=== PATIENT | female | born 1935 | race Caucasian/White ===

== ENCOUNTER 2017-04-04 01:48 | Inpatient (IN) | payer MEDICARE ==
[~2017-04-04] VITALS: Ht 162.6 cm; Wt 90.5 kg
[2017-04-04] VITALS (11 sets, daily range): BP systolic 110–210; BP diastolic 47–98
[~2017-04-04 01:48] MED LIST: ALLOPURINOL100 MG PO; CIPRO500 MG PO; CORGARD20 MG PO; COUMADIN0.5 M1 PO; COUMADIN5 M1 PO; FLAGYL500 MG PO; HYDROCODONE BIT1 T11 PO; NORCO 5-325 TA1 EACH PO; OXYBUTYNIN ER5 MG PO; SULFAMETH/TRIME1 TA1 PO; ULTRAM ER100 MG PO; VITAMIN D400 I1 PO; VITAMIN D5000 I3 PO
[2017-04-04] MEDS ORDERED: LOSARTAN POTASS50 M1 PO (01:55)
[2017-04-04 02:24] LABS: BASO % 0.1 % (0.0-1.0); EOS # 0.3 10*3/uL (0.0-0.4); EOS % 2.5 % (1.0-4.0); HEMATOCRIT 44.7 % (37.0-47.0); HEMOGLOBIN 14.8 g/dl (12.0-16.0); IG # 0.1 10*3/uL (0.0-0.1); LYMPH # 0.8 10*3/uL (1.3-4.4); LYMPH % 7.3 % (27.0-41.0); MEAN CELL VOLUME 86.1 fl (81.0-99.0); MEAN CORPUSCULAR HGB 28.5 pg (27.0-31.0); MEAN CORPUSCULAR HGB CONC 33.1 g/dl (33.0-37.0); MEAN PLATELET VOLUME 10.2 fl (9.6-12.3); MONO # 0.5 10*3/uL (0.1-1.0); MONO % 4.5 % (3.0-9.0); NEUT # 9.1 10*3/uL (2.3-7.9); NEUT % 84.8 % (47.0-73.0); PLATELET COUNT AUTOMATED 122 10*3/uL (130-400); RED BLOOD COUNT 5.19 10*6/uL (4.10-5.10); RED CELL DISTRI WIDTH 13.9 % (0-14.5); WHITE BLOOD COUNT 10.8 10*3/uL (4.8-10.8)
[2017-04-04 02:33] LABS: INTERNATIONAL NORM RATIO 3.9 (2.0-3.5); PROTHROMBIN TIME 45.5 SECONDS (9.0-12.4)
[2017-04-04 02:41] LABS: ALBUMIN 3.4 gm/dl (3.1-4.5); BILIRUBIN, TOTAL 0.9 mg/dl (0.2-1.0); POTASSIUM 3.9 mmol/L (3.5-5.1); TOTAL PROTEIN 7.3 gm/dL (6.4-8.2)
[2017-04-04 04:21] LABS: LA>2 REFLEX 2 HR DRAW NOW
[2017-04-04 04:50] LABS: LA>2 RFLX FOLLOW UP AT 2 HRS 2.9 mmol/L (0.4-2.0)
[2017-04-04 06:38] LABS: LA>2 REFLEX 4 HR DRAW NOW
[2017-04-04 06:40] LABS: FREE T4 1.2 ng/dl (0.76-1.46); HEMOGLOBIN A1c 5.7 % (4.8-5.6); MAGNESIUM 1.6 mg/dL (1.5-2.1); PHOSPHOROUS 2.3 mg/dL (2.5-4.9)
[2017-04-04 06:45] LABS: THYROID STIM HORMONE (HS) 1.66 uIU/ml (0.358-4.75)
[2017-04-04 07:16] LABS: VITAMIN D, 25-HYDROXY 40.7 ng/mL (30-100)
[2017-04-04 07:17] LABS: FOLIC ACID 10.79 ng/mL (>5.38)
[2017-04-04 11:20] LABS: BILIRUBIN NEGATIVE (NEGATIVE); BLOOD 1+ (NEGATIVE); CLARITY CLOUDY (CLEAR); COLOR YELLOW (YELLOW); GLUCOSE NEGATIVE (NEGATIVE); KETONE NEGATIVE (NEGATIVE); LEUKO ESTERASE 3+ (NEGATIVE); NITRITE POSITIVE (NEGATIVE); PH 6.5 (5.0-9.0); PROTEIN 1+ (NEGATIVE); UROBILINOGEN 0.2 E.U./dl (0.2-1.0)
[2017-04-04 11:20] LABS: LA>2 REFLEX 2 HR DRAW NOW
[2017-04-04 11:34] LABS: RBC TNTC rbc/hpf (0-2); URINE REFLEX COMMENT YES (NO); WBC TNTC wbc/hpf (0-5)
[2017-04-05] VITALS: BP 155/56
[2017-04-05 06:10] LABS: POTASSIUM 3.7 mmol/L (3.5-5.1)
[2017-04-05 06:18] LABS: INTERNATIONAL NORM RATIO 2.6 (2.0-3.5); PROTHROMBIN TIME 29.7 SECONDS (9.0-12.4)
[2017-04-05 08:00] VITALS: BP 152/84
[2017-04-05 12:00] VITALS: BP 137/58
[2017-04-05 16:00] VITALS: BP 149/50
[2017-04-05 20:00] VITALS: BP 136/45
[2017-04-06] VITALS: BP 152/81
[2017-04-06 06:50] LABS: INTERNATIONAL NORM RATIO 1.8 (2.0-3.5); PROTHROMBIN TIME 19.9 SECONDS (9.0-12.4)
[2017-04-06 08:00] VITALS: BP 152/70
[2017-04-06] MEDS ORDERED: KEFLEX500 M1 PO (10:19)
[2017-04-06] MEDS ORDERED: BACTRIM DS 8001 TA1 PO (10:19)
== END 2017-04-06 13:02 | disposition home or self-care (01) | DRG 872 ==
LOC: ED 01:48 → EDHOLD 02:55 → 4E 02:55 → ICCU 03:04 → 4E 03:19
PROVIDERS: Emergency Medicine; Internal Medicine; Student in an Organized Health Care Education/Training Program
DX: A41.9 Sepsis, unspecified organism (principal); N17.9 Acute kidney failure, unspecified; L03.116 Cellulitis of left lower limb; D69.6 Thrombocytopenia, unspecified; N18.3 Chronic kidney disease, stage 3 (moderate); I16.1 Hypertensive emergency; N30.00 Acute cystitis without hematuria; R65.20 Severe sepsis without septic shock; R73.9 Hyperglycemia, unspecified; D72.810 Lymphocytopenia; M1A.9XX0 Chronic gout, unspecified, without tophus (tophi); E55.9 Vitamin D deficiency, unspecified; E78.5 Hyperlipidemia, unspecified; I16.0 Hypertensive urgency; B96.20 Unspecified Escherichia coli [E. coli] as the cause of diseases classified elsewhere; I12.9 Hypertensive chronic kidney disease with stage 1 through stage 4 chronic kidney disease, or unspecified chronic kidney disease; G89.29 Other chronic pain; Z96.643 Presence of artificial hip joint, bilateral; Z82.49 Family history of ischemic heart disease and other diseases of the circulatory system; Z79.01 Long term (current) use of anticoagulants; Z86.711 Personal history of pulmonary embolism; Z86.718 Personal history of other venous thrombosis and embolism; Z79.899 Other long term (current) drug therapy

== ENCOUNTER → 2017-04-10 | Outpatient (CLI) | payer MEDICARE ==
[~2017-04-10] MED LIST changes: +BACTRIM DS 8001 TA1 PO; +KEFLEX500 M1 PO; +LOSARTAN POTASS50 M1 PO
--- NOTE | ~2017-04-10 | WRIGHTHP ---
[place], [place] PATIENT HISTORY AND PHYSICAL EXAM NAME: ROBLES TOVAR [facility] #: [id number] UNIT #: [id number] ROOM: DOCTOR: SEGUNDO ZuritaIDANIA BIRTHDATE: [birth year] DOS: 04/10/2017 NEW PATIENT EVALUATION CHIEF COMPLAINT: Skin tear of the left leg as well as cellulitis of the left leg. HISTORY OF PRESENT ILLNESS: This is an 81-year-old female who is referred to us by Dr Klein her PCP. She had recently been admitted approximately 6 days ago for left leg cellulitis. She apparently had accidentally scraped her left leg on the car door when she was getting out of it a few days prior to her admission and subsequently developed pain and erythema just around the wound that just quickly spread to encompass the entire leg to the point where it was quite red and quite swollen and painful and she was admitted for that. She was treated with antibiotics. She had Doppler ultrasound which was negative for DVT. She also had some issues with her blood pressure causing dizziness and her blood pressure was also managed during that admission as well. She was discharged on 2 oral antibiotics and was asked to follow up in the [facility]. She states that since then she still has some swelling of her leg and some discomfort of her leg that is still red, but according to the , the redness is much improved from when she first started the antibiotics. She had been having trouble trying to keep the dressing on it because it does not stick very well, so today, we are using Telfa and a Coban to keep the dressing in place. PAST MEDICAL HISTORY: Significant for a history of acute appendicitis; chronic pain; chronic kidney disease stage 3; history of gout; history of DVT, which has resolved; hyperlipidemia; hypertension; pulmonary embolus; UTI; vitamin D deficiency. PAST SURGICAL HISTORY: Bilateral hip replacements. She also has a history of inferior vena cava filter placement. SOCIAL HISTORY: She does not smoke or drink. She lives with her . She uses a walker to ambulate with. FAMILY HISTORY: Significant for congestive heart failure and kidney failure in her father. Mother is , cause was old age. ALLERGIES: No known drug allergies. CURRENT MEDICATIONS: As follows: Tylenol 650 mg p.o. t.i.d. p.r.n., Xanax 0.25 t.i.d., warfarin 5 mg daily, Orin 80 daily, losartan 50 mg daily, nadolol 20 mg half a tablet b.i.d., allopurinol 100 mg daily, diclofenac gel every 6h as needed, oxybutynin 5 mg q.24h, vitamin D3 1000 units daily, Bactrim 1 tablet p.o. b.i.d. and cephalexin 500 p.o. b.i.d. REVIEW OF SYSTEMS: She denies any chest pains or shortness of breath. She did have some nausea and dizziness when she was first admitted, but that has resolved. No further problems with that. No diarrhea. She is tolerating the [place], [place] PATIENT HISTORY AND PHYSICAL EXAM NAME: ROBLES TOVAR UNIT #: [id number] ROOM: DOCTOR: IDANIA RAYMOND M.D. BIRTHDATE: [birth year] antibiotics. No current fevers or chills. She does continue to have some swelling and redness of the leg, but it has improved from when she first started the antibiotics. She is able to ambulate well without symptoms of claudication. PHYSICAL EXAMINATION: VITAL SIGNS: As follows: She is afebrile, pulse of 76, respirations 20, blood pressure is 122/82. GENERAL: This is an elderly female who appears about her stated age, in no acute distress, pleasant and cooperative to examination. HEENT: Extraocular movements are intact. Oropharynx is clear. NECK: Supple. There is no JVD. LUNGS: Clear to auscultation. CARDIOVASCULAR: S1, S2, regular rate and rhythm. ABDOMEN: Obese, soft and nontender. EXTREMITIES: She has edema bilaterally, the left being more noticeable than the right. She has got positive peripheral pulses. Her feet are warm. She has multiple venous stasis changes and varicosities noted. The left leg is erythematous and I did not appreciate it being warmer than the right, at this point, but it is red up to just below the knee. Capillary refill is normal. Apparently, ABIs were unable to be obtained as the patient could not tolerate blood pressure being checked on her upper arms according to that what is listed in the chart. She had normal sensation in her feet. She has 1 small skin tear on the posterior calf of the left leg. It is measuring approximately 1.2 x 1.5 x 0.1 and it is superficial, triangular shaped in nature. There is no purulence. There is some devitalized tissue. Some of the epidermis is just coming off quite easily. This area was selectively debrided. I would say 30% of the wound was selectively debrided with forceps and scissors. There was minimal bleeding that was controlled with pressure. The patient tolerated the debridement well. Post-debridement measurements are as follows, 1.5 x 1 x 0.1. LABORATORY DATA: Her last white count was 10.8, hemoglobin was normal at 14, platelets were slightly low at 122. She had a BUN of 25, creatinine of 1.2, sodium of 141, potassium of 3.7. Glucose was 104. She had a Doppler ultrasound twice; one done in February, which was negative for DVT for the left lower extremity and was negative for DVT as well. ASSESSMENT AND PLAN: Small abrasion of the left calf. At this point, I would like to use TheraHoney and foam for her as well as Tubigrip for edema control. I have asked her to try to keep her leg elevated while she is resting. She should have compression stockings ordered for her, so we will get measurements for her legs and order them for her, we will discuss this with her at her next wound care visit. She still has some evidence of cellulitis. She is completing an antibiotic course. In addition, I did notice that she had multiple areas on her legs that had the appearance of actinic keratoses from sun damage and I did recommend that she does see a mastic sprayer for this at some point. In the meantime, she is going to follow up with us in one week. GRADY's not obtained today while she is here, but we may want to consider doing arterial studies if she would like to try compression bandaging. [place], [place] PATIENT HISTORY AND PHYSICAL EXAM [facility]: [facility] [id number] UNIT #: [id number] ROOM: DOCTOR: IDANIA RAYMOND M.D. BIRTHDATE: [birth year] IDANIA RAYMOND MD CM:HISPHYS:PATIENT HISTORY AND PHYSICAL EXAMINATION [id number] IDANIA RAYMOND M.D. 04/12/17 0922 interface
== END ==
LOC: WOUNDCARE 00:23
DX: S80.812A Abrasion, left lower leg, initial encounter (principal); L03.116 Cellulitis of left lower limb; I87.2 Venous insufficiency (chronic) (peripheral); I12.9 Hypertensive chronic kidney disease with stage 1 through stage 4 chronic kidney disease, or unspecified chronic kidney disease; N18.3 Chronic kidney disease, stage 3 (moderate); E78.5 Hyperlipidemia, unspecified; Z86.711 Personal history of pulmonary embolism; Z86.718 Personal history of other venous thrombosis and embolism; X58.XXXA Exposure to other specified factors, initial encounter; Y93.89 Activity, other specified; Y92.89 Other specified places as the place of occurrence of the external cause; Y99.8 Other external cause status

== ENCOUNTER → 2017-04-17 | Outpatient (CLI) | payer MEDICARE ==
--- NOTE | ~2017-04-17 | PR ---
[place], [place] PROGRESS NOTE NAME: ROBLES TOVAR [facility] #: [id number] UNIT #: [id number] ROOM: DOCTOR: SEGUNDO ZuritaIDANIA BIRTHDATE: [birth year] DOS: 04/17/2017 CHIEF COMPLAINT: Follow up of skin tear of the left leg as well as cellulitis of the left leg. HISTORY OF PRESENT ILLNESS: An 81-year-old female with a history of severe cellulitis of the left leg and a skin tear. She had been admitted to the hospital for this and was sent here for followup of her wound care. She was seen last week, we had prescribed TheraHoney and a foam as well as Tubigrip for edema control. She comes in today for a followup visit. She said she finished her antibiotics. She says her leg is much better. The redness is improved quite a bit. She does not describe any pain with the wound and her erythema and her redness and swelling have improved a lot. Her wound is also getting much smaller and is not draining any significant amounts of drainage. She does complain, however, of ankle pain on her left ankle. She says it is swollen and she is wondering if this is gout. She does not recall injuring her ankle at all. SOCIAL HISTORY: She does not smoke or drink. She ambulates with a walker. PHYSICAL EXAMINATION: VITAL SIGNS: Stable. Her temperature is 97.7, pulse 64, respirations 18, blood pressure is 104/52. WOUND EXAMINATION: The wound is looking much better, 0.3 in length x 0.8 in width x 0.1. It is definitely improved. There is really no visible necrotic tissue. There is a very small drying scab. The erythema and edema of the leg is much improved as well. She is complaining of some ankle pain and the ankle does appear slightly edematous. She is able to move her ankle and there is no wound associated in the ankle area. ASSESSMENT AND PLAN: Abrasion that is healing. Her cellulitis is definitely improved. She does have some venous insufficiency. I did ask if she wanted to go ahead and order compression stockings. She says she really is fine with the Tubigrip and does not really to wear anything tighter. I did recommend that she go and follow up with her PCP regarding her ankle pain as this is not really my field of expertise at this time. Followup in 1 week. [place], [place] PROGRESS NOTE NAME: ROBLES TOVAR UNIT #: [id number] ROOM: DOCTOR: IDANIA RAYMOND M.D. BIRTHDATE: [birth year] IDANIA RAYMOND MD CM:ARA [phone] IDANIA RAYMOND M.D. 04/17/17 1419 interface
== END ==
LOC: WOUNDCARE 10:50
DX: S80.812D Abrasion, left lower leg, subsequent encounter (principal); I87.2 Venous insufficiency (chronic) (peripheral); L03.116 Cellulitis of left lower limb; X58.XXXD Exposure to other specified factors, subsequent encounter

== ENCOUNTER → 2017-04-24 | Outpatient (CLI) | payer MEDICARE | LOC: WOUNDCARE 02:20 | DX: S81.812D Laceration without foreign body, left lower leg, subsequent encounter (principal); L03.116 Cellulitis of left lower limb; I87.2 Venous insufficiency (chronic) (peripheral); X58.XXXD Exposure to other specified factors, subsequent encounter ==

== ENCOUNTER → 2017-09-16 | Outpatient (CLI) | payer MEDICARE | END | disposition home or self-care (01) | LOC: US 15:30 | DX: R60.0 Localized edema (principal) ==

== ENCOUNTER 2017-10-04 12:41 | Emergency (ER) | payer MEDICARE ==
[~2017-10-04] VITALS: Ht 162.5 cm; Wt 95.3 kg
[2017-10-04 13:58] LABS: BASO % 0.3 % (0.0-1.0); EOS # 0.2 10*3/uL (0.0-0.4); EOS % 2.2 % (1.0-4.0); HEMATOCRIT 34.8 % (37.0-47.0); HEMOGLOBIN 11.5 g/dl (12.0-16.0); LYMPH # 1.9 10*3/uL (1.3-4.4); LYMPH % 20.1 % (27.0-41.0); MEAN CELL VOLUME 87.9 fl (81.0-99.0); MEAN PLATELET VOLUME 10.4 fl (9.6-12.3); MONO # 0.7 10*3/uL (0.1-1.0); MONO % 7.7 % (3.0-9.0); NEUT # 6.3 10*3/uL (2.3-7.9); NEUT % 68.4 % (47.0-73.0); PLATELET COUNT AUTOMATED 202 10*3/uL (130-400); RED BLOOD COUNT 3.96 10*6/uL (4.10-5.10); RED CELL DISTRI WIDTH 13.9 % (0-14.5); WHITE BLOOD COUNT 9.2 10*3/uL (4.8-10.8)
[2017-10-04 14:07] LABS: ACT PARTIAL THROMBO TIME 27.6 SECONDS (20.8-31.5); INTERNATIONAL NORM RATIO 1.6 (2.0-3.5)
[2017-10-04 14:11] LABS: ALBUMIN 3.5 gm/dl (3.1-4.5); ALKALINE PHOSPHATASE 77 U/L (45-117); BUN 22 mg/dl (7-24); CHLORIDE 105 mmol/L (98-107); CREATININE 1.31 mg/dL (0.55-1.02); LIPASE 122 U/L (73-393); POTASSIUM 3.9 mmol/L (3.5-5.1); SGOT/AST 18 IU/L (3-35); SGPT/ALT 14 U/L (12-78); SODIUM 139 mmol/L (136-145); TOTAL PROTEIN 7.7 gm/dL (6.4-8.2)
[2017-10-04 14:15] LABS: TROPONIN I < 0.015 ng/ml (<0.045)
[2017-10-04 17:11] VITALS: BP 200/85
== END 2017-10-04 17:53 | disposition short-term general hospital (02) ==
LOC: ED 12:41
PROVIDERS: Emergency Medicine
DX: N93.9 Abnormal uterine and vaginal bleeding, unspecified (principal); I12.9 Hypertensive chronic kidney disease with stage 1 through stage 4 chronic kidney disease, or unspecified chronic kidney disease; N18.3 Chronic kidney disease, stage 3 (moderate); E78.5 Hyperlipidemia, unspecified; M10.9 Gout, unspecified; Z79.02 Long term (current) use of antithrombotics/antiplatelets; Z79.899 Other long term (current) drug therapy; Z86.718 Personal history of other venous thrombosis and embolism

== ENCOUNTER 2018-11-14 14:16 | Inpatient (IN) | payer MEDICARE ==
[~2018-11-14] VITALS: Ht 162.6 cm; Wt 95.4 kg
[2018-11-14 14:26] VITALS: BP 161/63
[2018-11-14] MEDS ORDERED: CORGARD20 MG PO (14:32)
[2018-11-14] MEDS ORDERED: VITAMIN D5000 UNIT PO (14:32)
[2018-11-14] MEDS ORDERED: ALLEGRA ALLERGY60 M2 PO (14:33)
[2018-11-14] MEDS ORDERED: CIPRO250 MG PO (14:33)
[2018-11-14] MEDS ORDERED: COLACE100 MG PO (14:33)
[2018-11-14] MEDS ORDERED: ASPIRIN325 M2 PO (14:33)
[2018-11-14 14:45] VITALS: BP 149/50
[2018-11-14 14:45] LABS: BASO % 0.3 % (0.0-1.0); EOS # 0.1 10*3/uL (0.0-0.4); EOS % 0.9 % (1.0-4.0); HEMATOCRIT 38.2 % (37.0-47.0); HEMOGLOBIN 11.8 g/dl (12.0-16.0); LYMPH % 9.2 % (27.0-41.0); MEAN CELL VOLUME 81.4 fl (81.0-99.0); MEAN CORPUSCULAR HGB 25.2 pg (27.0-31.0); MEAN CORPUSCULAR HGB CONC 30.9 g/dl (33.0-37.0); MEAN PLATELET VOLUME 9.8 fl (9.6-12.3); MONO # 0.9 10*3/uL (0.1-1.0); MONO % 8.3 % (3.0-9.0); NEUT # 8.4 10*3/uL (2.3-7.9); NEUT % 79.8 % (47.0-73.0); PLATELET COUNT AUTOMATED 152 10*3/uL (130-400); RED BLOOD COUNT 4.69 10*6/uL (4.10-5.10); RED CELL DISTRI WIDTH 14.8 % (0-14.5); WHITE BLOOD COUNT 10.6 10*3/uL (4.8-10.8)
[2018-11-14 14:55] LABS: BILIRUBIN NEGATIVE (NEGATIVE); BLOOD 2+ (NEGATIVE); CLARITY TURBID (CLEAR); COLOR YELLOW (YELLOW); GLUCOSE NEGATIVE (NEGATIVE); KETONE TRACE (NEGATIVE); LEUKO ESTERASE 2+ (NEGATIVE); NITRITE NEGATIVE (NEGATIVE); UROBILINOGEN 0.2 E.U./dl (0.2-1.0)
[2018-11-14 15:01] LABS: ALBUMIN 3.3 gm/dl (3.1-4.5); CREATININE 1.37 mg/dL (0.55-1.02); POTASSIUM 4.2 mmol/L (3.5-5.1)
[2018-11-14 15:09] LABS: BACTERIA 2+; WBC TNTC wbc/hpf (0-5)
[2018-11-14 15:45] VITALS: BP 148/56
--- NOTE | 2018-11-14 16:22 | NUR ---
PT HAS NO COMPLAINTS AT THIS TIME. LOVENOX HAS BEEN GIVEN AND ROCEPHIN IS GOING AT THIS TIME. PATIENT AND FAMILY MADE AWARE THAT SHE IS GOING TO BED 524 AND WHEN THE BED IS CLEAN WE WILL GO UPSTAIRS.
[2018-11-14 16:40] VITALS: BP 175/86
[2018-11-14 16:54] VITALS: BP 138/70
--- NOTE | 2018-11-14 16:54 | NUR ---
A 83, admitted to 5E, under the services of FARHAT Carpenter DO with a diagnosis of UTI, RLE DVT, UNABLE TO AMBULATE. Chief complaint is RLE PAIN, UNABLE TO AMBULATE. Patient arrived via bed from ER. Monitor applied. Initial assessment completed. Vital signs taken and recorded. FARHAT CARPENTER DO notified of admission to the unit. Orders received. See assessment for past medical history, medications and allergies. Patient and/or family oriented to unit. Clothing/patient valuable form completed. ARMANI SAMUEL
--- NOTE | 2018-11-14 17:25 | NUR ---
ADDRESSED CONCERNS WITH THAT PATIENT HAS HX OF PE'S AND NO CXR/CTA HAS BEEN ORDERED, PAITENT NEEDS TO BE NPO PRIOR TO CTA. INFORMED THAT PATIENT IS REQUESTING TO BE DNR-CC AND FULL CODE IS ORDERED BY HEMANT. ALSO, MEDICATIONS ARE VERIFIED FROM HOME.
--- NOTE | 2018-11-14 17:30 | NUR ---
STATED OK TO CHANGE CODE STATUS TO PATIENT'S WISHES AND STATED THAT NO CXR/CTA WILL BE ORDERED, LOVENOX IS ORDERED.
--- NOTE | 2018-11-14 18:37 | NUR ---
PATIENT MEDICATED WITH TYLENOL FOR RLE PAIN 5/10. WILL MONITOR.
[2018-11-14 20:00] VITALS: BP 112/54
--- NOTE | 2018-11-14 20:21 | NUR ---
ATTEMPTED TO DO ORTHOSTATIC BLOOD PRESSURES. PATIENT WAS ABLE TO TOLERATE LAYING FLAT AND SITTING, BUT COULDN'T TOLERATED STANDING AT THIS TIME.
[2018-11-15] VITALS: BP 109/49
[2018-11-15 06:06] LABS: BASO % 0.3 % (0.0-1.0); EOS # 0.3 10*3/uL (0.0-0.4); EOS % 3.7 % (1.0-4.0); LYMPH # 1.3 10*3/uL (1.3-4.4); LYMPH % 17.3 % (27.0-41.0); MEAN CORPUSCULAR HGB 25.8 pg (27.0-31.0); MEAN CORPUSCULAR HGB CONC 31.4 g/dl (33.0-37.0); MONO # 0.7 10*3/uL (0.1-1.0); MONO % 9.2 % (3.0-9.0); NEUT # 5.1 10*3/uL (2.3-7.9); NEUT % 68.2 % (47.0-73.0); PLATELET COUNT AUTOMATED 159 10*3/uL (130-400); RED BLOOD COUNT 4.27 10*6/uL (4.10-5.10); RED CELL DISTRI WIDTH 15.2 % (0-14.5); WHITE BLOOD COUNT 7.5 10*3/uL (4.8-10.8)
[2018-11-15 06:34] LABS: CREATININE 1.2 mg/dL (0.55-1.02); POTASSIUM 3.8 mmol/L (3.5-5.1)
[2018-11-15 06:40] LABS: THYROID STIM HORMONE (HS) 1.78 uIU/ml (0.358-4.75)
[2018-11-15 06:43] LABS: ACT PARTIAL THROMBO TIME 27.6 SECONDS (20.8-31.5)
[2018-11-15 08:00] VITALS: BP 166/65
[2018-11-15 08:06] LABS: VITAMIN D, 25-HYDROXY 45.7 ng/mL (30-100)
--- NOTE | 2018-11-15 09:30 | NUR ---
MEDICATED WITH TYLENOL FOR COMPLAINTS OF HEADACHE. WILL MONITOR FOR EFFECTIVENESS.
--- NOTE | 2018-11-15 10:21 | NUR ---
DR MARCOS IN TO SEE PT AT THIS TIME.
--- NOTE | 2018-11-15 11:00 | NUR ---
PT STATES EARLIER TYLENOL EFFECTIVE FOR HEADACHE. RESTING MORE COMFORTABLY.
--- NOTE | 2018-11-15 11:30 | NUR ---
GREENS OR GROUNDS SUPERINTENDENT REMOVED PER ORDER.
[2018-11-15 12:00] VITALS: BP 140/59
[2018-11-15 16:00] VITALS: BP 168/70
--- NOTE | 2018-11-15 16:44 | NUR ---
MEDICATED WITH TYLENOL PER PRN ORDER FOR TEMP OF 100.2, ALSO COMPLAINTS OF LEG PAIN.
[2018-11-15 20:00] VITALS: BP 124/74
[2018-11-16] VITALS: BP 140/57
[2018-11-16 04:00] VITALS: BP 154/68
[2018-11-16 06:39] LABS: BASO % 0.3 % (0.0-1.0); EOS # 0.1 10*3/uL (0.0-0.4); HEMATOCRIT 34.4 % (37.0-47.0); HEMOGLOBIN 10.7 g/dl (12.0-16.0); LYMPH # 1.2 10*3/uL (1.3-4.4); LYMPH % 18.9 % (27.0-41.0); MEAN CELL VOLUME 82.3 fl (81.0-99.0); MEAN CORPUSCULAR HGB 25.6 pg (27.0-31.0); MEAN CORPUSCULAR HGB CONC 31.1 g/dl (33.0-37.0); MEAN PLATELET VOLUME 10.5 fl (9.6-12.3); MONO # 0.8 10*3/uL (0.1-1.0); MONO % 12.2 % (3.0-9.0); NEUT # 4.2 10*3/uL (2.3-7.9); PLATELET COUNT AUTOMATED 190 10*3/uL (130-400); RED BLOOD COUNT 4.18 10*6/uL (4.10-5.10); RED CELL DISTRI WIDTH 15.3 % (0-14.5); WHITE BLOOD COUNT 6.4 10*3/uL (4.8-10.8)
[2018-11-16 06:46] LABS: BUN 19 mg/dl (7-24); CHLORIDE 106 mmol/L (98-107); CREATININE 1.05 mg/dL (0.55-1.02); POTASSIUM 3.7 mmol/L (3.5-5.1); SODIUM 138 mmol/L (136-145)
[2018-11-16 07:02] LABS: INTERNATIONAL NORM RATIO 1.1 (2.0-3.5)
[2018-11-16 08:00] VITALS: BP 176/66
--- NOTE | 2018-11-16 09:30 | NUR ---
PT WORKING WITH PHYSICAL THERAPY AT THIS TIME.
--- NOTE | 2018-11-16 09:59 | NUR ---
MEDICATED WITH TYLENOL FOR COMPLAINTS OF HEADACHE. WILL MONITOR FOR EFFECTIVENESS.
--- NOTE | 2018-11-16 10:07 | NUR ---
PHYSICAL THERAPY 1:1 Time: Pain on a scale of 0-10 > Prior to treatment: 10 Post treatment: 10 Progress note: Pt seen on this date for initial physical therapy assessment; please refer to chart for details. Pt required max A x 1 for supine -> sit and max A x 2 for sit <-> stand and stand-> pivot transfer to chair. She demonstrated poor balance in standing. 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 MILTON MORSE PT
--- NOTE | 2018-11-16 10:30 | NUR ---
PT STATES EARLIER TYLENOL WAS EFFECTIVE FOR HEADACHE.
--- NOTE | 2018-11-16 10:50 | NUR ---
Occupational Therapy enoch;uation completed on 5th floor with full eval to follow. Precautions: Max A-2, fall risk, pain, OA, DJD, IV site. Moderate complexity level 94070. Work on bed mobility, functional mobility, functional transfers, grooming while seated, sitting balance etc. Recommend SNF. Thank you for this referral, Allyn Martinez OTR/L
[2018-11-16 12:00] VITALS: BP 132/60
--- NOTE | 2018-11-16 12:41 | NUR ---
Singer Back Tender in to talk to patient. Patient states lives at HOME with . There are NO steps in the home. Physician: ANSHU Pharmacy: [facility] Home health services: NONE Patient's level of ADLs: MODERATE ASSIST Patient has working utilities: YES DME: WALKER Follow-up physician's appointment after d/c: WILL BE MADE BY HOSPITALIST NURSE DIRECTOR ON DISCHARGD Does patient want to access PORTAL?: NO Discharge plan PT STATES SHE LIVES WITH ALTHOUGH SHE WOULD LIKE TO GO TO REHAB BEFORE RETURNING HOME. PT HAD REQUESTED TO GO TO REHAB SUITES BUT HER INSURANCE IS NOT ACCEPTED THERE. PT AND NOTIFIED. THEY WANT TO TALK TO FAMILY ABOUT IT BEFORE MAKING A DECISION. TOLD THEM I WOULD CHECK BACK WITH THEM LATER TODAY OR IN THE AM.. ASLHI JON
--- NOTE | 2018-11-16 13:00 | NUR ---
ANDINO CATHETER AND IV FLUIDS D/C PER ORDER.
--- NOTE | 2018-11-16 13:02 | NUR ---
OT NOTE Pt was seen this P.M. 1:1 for 15 minute OT session. Upon arrival pt was sitting upright in recliner, pt identified by name and . Pt had complaints of pain at this time however would not rate on 0-10 pain scale. Pt completed multiple sit to stand transfers from chair level with maxA X 2 and education for proper hand placement for increased I and improved technique. Pt then completed stand pivot to EOB with maxA X 2 where she transferred sit to supine with maxA X 2. There she was left supine in bed with call light in hand, tray table in place, and bed alarm activated for safety. Continue with rec D/c plan to SNF. RUBIN Greenberg/Federico
--- NOTE | 2018-11-16 14:07 | NUR ---
Patient has received auth for [facility]. Patient is ok to go if medically stable for discharge. Auth will be good through tomorrow (Friday11/17/18). hospitalist office notified.
--- NOTE | 2018-11-16 14:24 | NUR ---
MEDICATED WITH TYLENOL AND ZOFRAN PER PRN ORDER FOR COMPLAINTS RIB/LEG PAIN AND NAUSEA. WILL MONITOR FOR EFFECTIVENESS.
--- NOTE | 2018-11-16 14:31 | NUR ---
PHYSICAL THERAPY Patient presented to therapy in sitting position with present. Patient agrees to therapy session. Patient transferred STS with MAX A X 2 with verbal cues for pushing off armrests of chair with hands. Patient SPT to EOB and transfer to supine in bed with MAX A X 2. Patient was left in supine in bed with head of bed elevated, call light within reach, and bed alarm activated in front of as witness. Patient was 1:1 with this EQUIPMENT PROCESSER STORAGE for 10 minutes total. FORTINO HOWARD EQUIPMENT PROCESSER STORAGE
--- NOTE | 2018-11-16 15:15 | NUR ---
Patient with at bedside, requesting a referral to be faxed to [facility]. Contacted tammy and faxed referral. Will require precert.
--- NOTE | 2018-11-16 15:33 | NUR ---
PHYSICAL THERAPY Patient presented to therapy in supine with head of bed elevated and visiting in room. Patient has report of bilateral knee pain. Patient agrees to therapy session. Patient performed supine bilateral LE THER EX 2 x 10 reps each for strengtheing the LEs in order to improve patient's functional mobility. Patient required AAROM on most ther ex due to weakness. Patient was left in supine position in bed with call light within reach, bed alarm activated and patient's in room visiting. Patient was 1:1 with this CAFE LEAD for 15 minutes total. FORTINO HOWARD CAFE LEAD
[2018-11-16 16:00] VITALS: BP 146/55
--- NOTE | 2018-11-16 17:30 | NUR ---
PT INCONT OF URINE, WEARING BREIF. OCCUPIED BED CHANGE, SKIN INTACT. NEW BREIF APPLIED PT TOLERATED WELL. REMAINS AT BEDSIDE
[2018-11-16 20:00] VITALS: BP 150/66
[2018-11-17] VITALS: BP 150/59
[2018-11-17 06:23] LABS: BASO % 0.2 % (0.0-1.0); EOS # 0.2 10*3/uL (0.0-0.4); EOS % 3.1 % (1.0-4.0); HEMOGLOBIN 10.7 g/dl (12.0-16.0); LYMPH # 1.2 10*3/uL (1.3-4.4); LYMPH % 20.8 % (27.0-41.0); MEAN CELL VOLUME 82.5 fl (81.0-99.0); MEAN CORPUSCULAR HGB CONC 31.5 g/dl (33.0-37.0); MEAN PLATELET VOLUME 10.2 fl (9.6-12.3); MONO # 0.8 10*3/uL (0.1-1.0); MONO % 13.1 % (3.0-9.0); NEUT # 3.6 10*3/uL (2.3-7.9); NEUT % 61.6 % (47.0-73.0); PLATELET COUNT AUTOMATED 198 10*3/uL (130-400); RED BLOOD COUNT 4.12 10*6/uL (4.10-5.10); RED CELL DISTRI WIDTH 15.2 % (0-14.5); WHITE BLOOD COUNT 5.8 10*3/uL (4.8-10.8)
[2018-11-17 06:45] LABS: INTERNATIONAL NORM RATIO 1.1 (2.0-3.5)
[2018-11-17 06:58] LABS: BUN 14 mg/dl (7-24); CHLORIDE 107 mmol/L (98-107); CREATININE 0.98 mg/dL (0.55-1.02); POTASSIUM 3.6 mmol/L (3.5-5.1); SODIUM 138 mmol/L (136-145)
[2018-11-17 08:00] VITALS: BP 150/69
--- NOTE | 2018-11-17 08:30 | NUR ---
DR MARCOS IN TO SEE PT.
--- NOTE | 2018-11-17 10:14 | NUR ---
Patient has been accepted to [facility]hab [facility], family has agreed to pay out of network expenses; starting precert. Waiting on auth.
--- NOTE | 2018-11-17 10:40 | NUR ---
PHYSICAL THERAPY Patient seen this am 1;1 for therapy visit and was supine in bed upon therapist arrival. Patient reports L side rib pain, along with generalized weakness and needed multiple v/c's to complete all therapy task this session. Patient transfers supine to sit EOB with MAX A x 2, reporting L knee pain due to history of Arthritis and tolerated static EOB sit x 3 minutes to collect herself. Patient performed several sit to stand transfers with use of wh walker standing support, MAX A and performed SPT to bedsice chair. Patient demonstrated increased difficulty with L foot advance and became fatigued due to length of time it took to complete a safe transfer. Patient needed v/c's for improved technique and performance and remained comfortably in bedside chair following treatment with call light, tray table, telephone and body alarm for safety. Will continue per POC as tolerated, total treatment time 15 minutes. Vasu Estrella, COMMUNITY SUPPORT ASSOCIATE
--- NOTE | 2018-11-17 10:45 | NUR ---
OT NOTE Pt was seen this A.M. 1:1 for 30 minute OT session. Upon arrival pt was supine in bed, pt identified by name and . Pt had reports of B knee pain however she would not rate on 0-10 pain scale just stated "it is there." Pt transferred supine to sit EOB with maxA X 2 and education on techniques and utilzing bed rails for increased I in bed mobility. While sitting EOB challenged pt's sitting balance while having her weight shift, cross midline, and bilateral integration for increased I and enhanced safety. Pt was able to maintain G- sitting balance throughout. Also while sitting on the EOB attempted to complete BUE towel exercises and pt was unable due to limited ROM, task was downgraded to AAROM to point of tolerance with light stretch for 10 seconds to increase ROM needed for increased I in self care tasks. Pt completed multiple sit to stand transfers from bed level with maxA X 2 and use of w/w for UE support. Pt completed stand pivot to recliner with maxA X 2. There she was left sitting upright with call light in hand, trya table in place, and body alarm on for safety. Continue with rec D/C plan to SNF. RUBIN Greenberg/Federico
--- NOTE | 2018-11-17 10:49 | NUR ---
WAITING FOR AUTH FOR REHAB SUITES.
[2018-11-17 11:10] VITALS: BP 151/53
--- NOTE | 2018-11-17 12:00 | NUR ---
MEDICATED PT PER PRN ORDER WITH NORCO FOR C/O LEFT KNEE PAIN THAT RATES 8/10 ON PAIN SCALE.
--- NOTE | 2018-11-17 13:00 | NUR ---
PT STATES RELIEF OF PAIN WITH EARLIER NORCO.
--- NOTE | 2018-11-17 13:35 | NUR ---
OT NOTE Pt was seen this A.M. 1:1 for 15 minute OT session. Upon arrival pt was sitting upright in recliner, pt identified by name and . Pt completed sit to stand transfer from chair level with maxA X 2. followed by stand pivot to EOB with maxA X 2. Pt transferred supine to sit EOB with maxA x 2 where she was left with call light in hand, tray table in place, and bed alarm activated for safety. Continue with rec D/c plan to SNF. RUBIN Greenberg/Federico
--- NOTE | 2018-11-17 14:17 | NUR ---
PHYSICAL THERAPY Patient was transferred back to supine in bed from bedside chair with MAX A X 2 to FULL BODY LIFT. Patient cannot advance feet, slide feet, or lift feet to advance walker or perform transfers. CALL LIGHT, BED ALARM ACTIVATED, AND HEAD OF BED ELEVATED. FORTINO HOWARD WORK STUDY STUDENT
--- NOTE | 2018-11-17 14:52 | NUR ---
MEDICATED PT PER PRN ORDER WITH TYLENOL FOR C/O BACK PAIN TAHT RATES 9/10 ON PAIN SCALE.
--- NOTE | 2018-11-17 15:34 | NUR ---
PHYSICAL THERAPY Patient presented to therapy this afternoon in supine with head of bed elevated and visiting in the room. OPatient reports being given pain meds shortly ago for her back pain which was 8/10. Patient agrees to therapy session. Patient was identified by name and . Patient performed supine bilateral LE ther ex in all planes of movement 2 x 10 reps each with both AAROM and AROM for strengthening, in order to improve patient's functional mobility. Patient was left in supine with head of bed elevated, call light within reach, and bed alarm activated. Patient was 1:1 with this JOINTER OPERATOR for 12 minutes total. FORTINO HOWARD JOINTER OPERATOR
[2018-11-17 16:00] VITALS: BP 121/74
[2018-11-17 20:00] VITALS: BP 153/63
--- NOTE | 2018-11-17 21:20 | NUR ---
PO DULCOLAX ADMINISTERED PER PRN ORDER FOR C/O CONSTIPATION. LAST RECORDED BM 11/13/18. NORMO BSX4 QUADS NOTED. WILL MONITOR EFFECTIVENESS. CALL LIGHT LEFT IN REACH.
[2018-11-18] VITALS (7 sets, daily range): BP systolic 147–181; BP diastolic 49–80
[2018-11-18 07:46] LABS: INTERNATIONAL NORM RATIO 1.1 (2.0-3.5)
--- NOTE | 2018-11-18 09:51 | NUR ---
0988 BED BATH PROVIDED TO PATIENT GOWN AND TOP SHEET CHANGED. 0939 PATIENT REPORTS PAIN RATED 5 ON SCALE 1-10, PATIENT STATED "ACHY,SHARP". ADMINISTERED PRN PO NORCO ORDERED PER PATIENT REQUEST REPORTED TO ARMANI KAUR AND INSTRUCTOR. CALL LIGHT WITHIN REACH, BED ALARM ON, WILL CONTINUE TO MONITOR. DORIS GAMBINON
--- NOTE | 2018-11-18 10:47 | NUR ---
1045 PAIN REASSESSED PATIENT REPORTS "PAIN 2 WHEN LAYING STILL BUT A 10 WHEN MOVING" ON SCALE 0-10. PATIENT ALERT AND CALM IN BED, BED ALARM ON, SIDE RAILS UP, CALL LIGHT IN REACH. REPORTED TO PAULTOR. DORIS SPN
--- NOTE | 2018-11-18 11:05 | NUR ---
PHYSICAL THERAPY Patient seen this am 1:1 for therapy visit and was supine in bed upon therapist arrival. Patient reports no c/o's pain at rest, however states it increases quickly in L LE during standing activities. Patient transfers supine to sint EOB with Mod A, tolerating EOB sit x 4 minutes, with v/c to increase upright posture to promote core strengthening. Patient reports slight bout of dizziness while sitting and instructed to perform visual fixation technique by picking out object in room while concentrating on it until improved clarity. Patient performed several sit to stand transfers at bedside, MAX A x 2, wh walker support during static stand, demonstrating POOR upright posture and only tolerating < 40 seconds prior to quick onset of fatigue. Patient unable to attmept several steps this session secondary to increased anxiety and returned to supine in bed. Patient remained with call light, tray table, telephone and bed alarm for safety as family friend arrived for a visit. Will continue per POC as tolerated, total treatment time 16 minutes. Vasu Estrella, BIRD SITTER
--- NOTE | 2018-11-18 11:25 | NUR ---
OT NOTE Pt was seen this A.M. 1:1 for 25 minute OT session. Upon arrival pt was supine in bed, pt identified by name and . Pt had reports of being dizzy and "mild" L knee pain. Pt transferred supine to sit EOB with maxA X 2. While sitting EOB pt completed AAROM to BUE over all planes of motion to point of tolerance for 1 X 10 with a ten sec stretch to increase and restore maximum functional use in ADL/IADL tasks. Pt completed multiple sit to stand transfers from bed level with maxA X 2 and education for proper hand placement and techniques for increased I in functional transfers. Challenged pt's static standing tolerance needed for increased I in self care tasks and functional transfers, pt was able to tolerate aprox 20-35 seconds before sitting due to fatigue. Pt transferred back to bed sit to supine with maxA X 2 where she was left with call light in hand, tray table in place, and bed alarm activated for safety. Continue with rec D/C plan to SNF. RUBIN Greenberg/Federico
--- NOTE | 2018-11-18 11:51 | NUR ---
PATIENT REQUESTED AND RECIEVED PRN TYLENOL. PT COMPLAINS FOR LEFT KNEE PAIN RATED AT A 8. WILL CONTINUE TO [id number].
--- NOTE | 2018-11-18 13:41 | NUR ---
patient will be going to [facility]hab [facility], waiting on auth.
--- NOTE | 2018-11-18 15:56 | NUR ---
PATIENT REQUEST TO SEE DOCTOR ABOUT DIZZINESS. DR. LEVY WAS NOTIFIED.
--- NOTE | 2018-11-18 15:57 | NUR ---
DR. LEVY REQUESTED ORTHOSTATIC BLOOD PRESSURES ON PATIENT. PATIENT IS UNABLE TO COMPLETE THESE. PT GETS DIZZY FROM TURNING SIDE TO SIDE IN BED. DR. LEVY NOTIFIED.
[2018-11-19] VITALS: BP 130/55
[2018-11-19 06:30] LABS: BASO % 0.4 % (0.0-1.0); EOS # 0.3 10*3/uL (0.0-0.4); EOS % 5.6 % (1.0-4.0); HEMATOCRIT 35.9 % (37.0-47.0); HEMOGLOBIN 10.7 g/dl (12.0-16.0); LYMPH % 19.2 % (27.0-41.0); MEAN CELL VOLUME 82.7 fl (81.0-99.0); MEAN CORPUSCULAR HGB 24.7 pg (27.0-31.0); MEAN CORPUSCULAR HGB CONC 29.8 g/dl (33.0-37.0); MEAN PLATELET VOLUME 9.7 fl (9.6-12.3); MONO # 0.5 10*3/uL (0.1-1.0); MONO % 10.4 % (3.0-9.0); NEUT # 3.2 10*3/uL (2.3-7.9); NEUT % 63.6 % (47.0-73.0); PLATELET COUNT AUTOMATED 239 10*3/uL (130-400); RED BLOOD COUNT 4.34 10*6/uL (4.10-5.10)
[2018-11-19 06:40] LABS: INTERNATIONAL NORM RATIO 1.2 (2.0-3.5)
[2018-11-19 06:48] LABS: BUN 17 mg/dl (7-24); CHLORIDE 104 mmol/L (98-107); CREATININE 0.91 mg/dL (0.55-1.02); POTASSIUM 3.9 mmol/L (3.5-5.1); SODIUM 139 mmol/L (136-145)
--- NOTE | 2018-11-19 07:34 | NUR ---
patient accepted to the rehab suites, precert started, waiting on auth
[2018-11-19 08:25] VITALS: BP 156/63
--- NOTE | 2018-11-19 08:53 | NUR ---
OT NOTE Pt was seen this A.M. 1:1 for 23 minute OT session. Upon arrival pt was supine in bed, pt identified by name and and had reports of 10/10 L knee pain. Pt transferred supine to sit EOB with modA X 2. While sitting EOB challenged pt's sitting balance while having her weight shift, cross midline, and complete bilateral integration for increased I and enhanced safety. Pt was able to maintain F+/G- sitting balance throughout. Pt then completed AAROM over all planes of motion and educated pt on stretched to complete to increase and restore ROM needed for increased I in self care tasks. Pt then completed tricep exercises to BUE for 1 X 10 to increase UE strength needed for increased I in functional transfers. Pt then transferred sit to supine with maxA X 2 where she was left with call light in hand, tray table in place, and bed alarm activated for safety. Continue with rec D/C plan to SNF. ISRRAEL Greenberg
--- NOTE | 2018-11-19 09:00 | NUR ---
PHYSICAL THERAPY Patient seen this am 1:1 for therapy visit and was supine in bed upon therapist arrival. Patient reports no new c/o's prior to treatment other than chronic L knee / patella pain, 3/10 at rest. Patient transfers supine to sit EOB with MAX A x 2, tolerating static sit x several minutes, SBA x 1. Patient performed seated B LE therex, AROM on R side and AAROM L side, all planes, 2 x 10 each to improve ROM and strength. Patient returned to supine in bed and remained with call light, tray table, cell phone and bed alarm for safety. Will continue per POC as tolerated, total treatment time 16 minutes. Vasu Estrella, CORRECTIONAL MAINTENANCE TECHNICIAN
--- NOTE | 2018-11-19 09:05 | NUR ---
Patient has receieved auth for [facility] and can go if medically stable for discharge.
[2018-11-19 11:17] VITALS: BP 153/76
--- NOTE | 2018-11-19 14:53 | NUR ---
UPDATED CLINICALS FAXED TO INSURANCE.
[2018-11-19 16:00] VITALS: BP 143/52
[2018-11-19 20:00] VITALS: BP 135/67
[2018-11-20] VITALS: BP 155/62
--- NOTE | 2018-11-20 02:59 | NUR ---
PATIENT RESTING IN BED WITH EYES CLOSED. NO SIGNS OR SYMPTOMS OF DISTRESS NOTED. RESPIRATIONS REGULAR AND NON-LABORED. WILL CONTINUE TO MONITOR. CALL LIGHT IN REACH.
[2018-11-20 07:24] LABS: INTERNATIONAL NORM RATIO 1.5 (2.0-3.5)
--- NOTE | 2018-11-20 07:29 | NUR ---
Patient received auth for [facility] on 11/19/18. Patient can go today if medically stable, if not precert will have to be restarted.
[2018-11-20 08:00] VITALS: BP 112/90
--- NOTE | 2018-11-20 09:25 | NUR ---
OT NOTE Pt was seen this A.M. 1:1 for 25 minute OT session. Upon arrival pt was supine in bed, pt identified by name and . Pt had complaints of "some" L knee pain however would not rate on 0-10 pain scale when questioned. Pt transferred supine to sit EOB with maxA X 2 and complaints of dizziness, educated pt on visual fixation technique to decrease dizziness. While sitting EOB pt completed AAROM over all planes of motion for 1 X 10 to increase and restore ROM and tricep exercises completed for 1 X 10 to increase UE strength needed for increased I in functional transfers. Challenged pt's sitting balance while having her weight shift and cross midline and pt was able to maintain F+/G- sitting balance. Sit to stand transfer completed from bed level with maxA X 2 followed by stand pivot to bedside commode with maxA X 2 and use of w/w for UE support. Clothing management and toilet hygiene completed with maxA. Sit to stand completed from bedside commode with maxA X 2 followed by stand pivot to recliner with maxA X 2. There she was left with call light in hand, tray table in place, and body alarm activated for safety. Throughout entire session pt required constant verbal prompts for encouragement due to fear of falling and stating "I can't" with every task presented to her. Continue with rec D/C plan to SNF. RUBIN Greenberg/Federico
--- NOTE | 2018-11-20 09:33 | NUR ---
Pt was up to chair with assist of PT/OT and PA. Pt is currently eating breakfast. Will do bladder scan after pt finished eating.
--- NOTE | 2018-11-20 09:35 | NUR ---
PHYSICAL THERAPY Patient presented to therapy in supine with head of bed elevated and report of having bowel and bladder issues this morning. Patient at first did not want to get out of bed , but then agreed to therapy session. Patient was identified by name and . Patient performed supine to sitting at EOB transfer with MAX A X 2. Patient scooted to the EOB with MIN A X 2. Patient STS transfer with MAX X 2 with verbal cues for proper hand placement and leaning forwards. Patient performed SPT to bedside commode with MOD A X 2 to MAX A X 2 with maximum verbal cues for hand placement, locking knees, and upright posture. Patient required MAX verbal cues for side-stepping and pivoting L LE during transfer. Patient performed transferred ot bedside commode stand to sitting with MAX A X 2. Patient transferred off of bedside commode with MAX A X 2 with verbal cues for pushing off commode handles with UEs. Patient performed stand pivot to bedside chair with W/W and MAX A X 2 with MAX VERBAL cues for proper transfer technique. Two pillows put in chair seated to reduce how deep the patient is in chair. Patient performed ther ex to the bilateral LES in all planes of movement 2 x 10 reps each LE in order to improve patient's functional mobility. Patient was left in sitting position with call light within reach, chair alarm tested and attached, and tray table and breakfast in front of patient. Patient was 1:1 with this OIL OPERATOR for 25 minutes total. Patient is recommended for SNF upon discharge. batsheva varma airplane captain
--- NOTE | 2018-11-20 11:13 | NUR ---
DR. Diallo wanted to know who will be the physican at [facility] and she would like to speak with them regarding plan of care. I spoke with [facility] and they stated it is Dr. Erin Ba. I notified Dr. Diallo of this, she states she has his contact info and will call him.
--- NOTE | 2018-11-20 11:23 | NUR ---
PHYSICAL THERAPY Patient was transferred STS from bedside chair and SPT to sitting EOB with MAX A X 2. Patient transferred back to supine in bed with MAX A X 2. PATIENT WAS LEFT SUPINE IN BED with PCT Kaylah and another PCT taking care of patient. FORTINO HOWARD LEATHER CUTTER
[2018-11-20] MEDS ORDERED: TYLENOL325 M2 PO (11:32)
[2018-11-20] MEDS ORDERED: COUMADIN5 M2 PO (11:32)
[2018-11-20] MEDS ORDERED: ENOXAPARIN100 MG/1 M SC (11:32)
--- NOTE | 2018-11-20 11:47 | NUR ---
Bladder scan performed at this time. Pt had been sitting up for awhile in chair. Result of 193 ml obtained.
[2018-11-20 12:00] VITALS: BP 144/68
--- NOTE | 2018-11-20 12:11 | NUR ---
[facility] TO [facility] MANAGER PT AT 1PM FOR [facility]SPORT [facility]. [facility] AWARE, IN ROOM AND AWARE. WARDCLERK ON 5E AWARE.
--- NOTE | 2018-11-20 12:16 | NUR ---
IV removed, spoke with pt and pt regarding orders for dc, meds that will be continued at [facility] and follow up testing ordered. [facility] fruit or nut picker pt.
--- NOTE | 2018-11-20 12:54 | NUR ---
[facility] here to continuous pickling line pickler pt for DC to [facility].
--- NOTE | 2018-11-20 13:01 | NUR ---
Report called to Karen at [facility]. DC via [facility].
--- NOTE | 2018-11-20 16:07 | NUR ---
OCCUPATIONAL THERAPY CO-SIGN I approve of the Occupational Therapy notes written above. DUNG GROSS OTR/Federico
--- NOTE | 2018-11-23 07:55 | NUR ---
PHYSICAL THERAPY CO-SIGN I approve of the Phyical Therapy notes written above. SUBHASH SILVA PT
== END 2018-11-20 13:01 | disposition other institution (70) | DRG 299 ==
LOC: ED 14:16 → 5E 16:07 → EDHOLD 16:07 → 5E 16:13
PROVIDERS: Emergency Medicine; Internal Medicine; Internal Medicine Nephrology; ADMIT Internal Medicine
DX: I82.411 Acute embolism and thrombosis of right femoral vein (principal); N17.0 Acute kidney failure with tubular necrosis; E87.1 Hypo-osmolality and hyponatremia; N39.0 Urinary tract infection, site not specified; I82.431 Acute embolism and thrombosis of right popliteal vein; G89.29 Other chronic pain; N18.3 Chronic kidney disease, stage 3 (moderate); M10.9 Gout, unspecified; Z86.718 Personal history of other venous thrombosis and embolism; E78.5 Hyperlipidemia, unspecified; Z86.711 Personal history of pulmonary embolism; Z96.643 Presence of artificial hip joint, bilateral; Z84.1 Family history of disorders of kidney and ureter; Z83.3 Family history of diabetes mellitus; E66.9 Obesity, unspecified; Z79.82 Long term (current) use of aspirin; D64.9 Anemia, unspecified; R73.9 Hyperglycemia, unspecified; E80.6 Other disorders of bilirubin metabolism; R80.9 Proteinuria, unspecified; R31.1 Benign essential microscopic hematuria; R82.71 Bacteriuria; E55.9 Vitamin D deficiency, unspecified; I12.9 Hypertensive chronic kidney disease with stage 1 through stage 4 chronic kidney disease, or unspecified chronic kidney disease; Z68.36 Body mass index [BMI] 36.0-36.9, adult

== ENCOUNTER 2021-06-28 23:31 | Inpatient (IN) | payer MEDICARE ==
[~2021-06-28] VITALS: Ht 167.6 cm; Wt 93.2 kg
[~2021-06-28 23:31] MED LIST changes: +ALLEGRA ALLERGY60 M2 PO; +ASPIRIN325 M2 PO; +CIPRO250 MG PO; +COLACE100 MG PO; +COUMADIN5 M2 PO; +ENOXAPARIN100 MG/1 M SC; +TYLENOL325 M2 PO; +VITAMIN D5000 UNIT PO
[2021-06-28 23:40] VITALS: BP 195/61
[2021-06-29 01:16] LABS: BASO % 0.3 % (0.0-1.0); EOS # 0.2 10*3/uL (0.0-0.4); EOS % 2.1 % (1.0-4.0); HEMATOCRIT 43.7 % (37.0-47.0); LYMPH # 0.8 10*3/uL (1.3-4.4); LYMPH % 11.5 % (27.0-41.0); MEAN CELL VOLUME 87.6 fl (81.0-99.0); MEAN CORPUSCULAR HGB 27.5 pg (27.0-31.0); MEAN CORPUSCULAR HGB CONC 31.4 g/dl (33.0-37.0); MEAN PLATELET VOLUME 10.3 fl (9.6-12.3); MONO # 0.6 10*3/uL (0.1-1.0); MONO % 8.2 % (3.0-9.0); NEUT # 5.7 10*3/uL (2.3-7.9); NEUT % 77.4 % (47.0-73.0); PLATELET COUNT AUTOMATED 143 10*3/uL (130-400); RED BLOOD COUNT 4.99 10*6/uL (4.10-5.10); RED CELL DISTRI WIDTH 14.6 % (0-14.5); WHITE BLOOD COUNT 7.3 10*3/uL (4.8-10.8)
[2021-06-29 01:29] LABS: ALBUMIN 3.3 gm/dl (3.1-4.5); CREATININE 1.59 mg/dL (0.55-1.02); POTASSIUM 4.5 mmol/L (3.5-5.1); TOTAL PROTEIN 8.2 gm/dL (6.4-8.2)
[2021-06-29 02:02] LABS: BILIRUBIN Negative (Negative); BLOOD 2+ (Negative); CLARITY Cloudy (Clear); COLOR Yellow (Yellow); GLUCOSE Negative (Negative); KETONE Negative (Negative); LEUKO ESTERASE 3+ (Negative); NITRITE Positive (Negative); UROBILINOGEN 0.2 E.U./dl (0.0-1.0)
[2021-06-29 02:26] LABS: BACTERIA 2+; RBC 21-30 rbc/hpf (0-2); WBC TNTC wbc/hpf (0-5)
[2021-06-29] MEDS ORDERED: CEPHALEXIN500 M1 PO ×2 (06:44)
[2021-06-29 14:09] VITALS: BP 148/82
[2021-06-29 15:28] LABS: INTERNATIONAL NORM RATIO 2.7 (2.0-3.5)
[2021-06-29 18:56] VITALS: BP 142/98
[2021-06-29 22:28] VITALS: BP 169/54
[2021-06-30 00:30] VITALS: BP 156/97
[2021-06-30 06:59] LABS: BASO % 0.3 % (0.0-1.0); EOS # 0.4 10*3/uL (0.0-0.4); EOS % 5.6 % (1.0-4.0); HEMATOCRIT 39.1 % (37.0-47.0); LYMPH # 1.2 10*3/uL (1.3-4.4); LYMPH % 16.8 % (27.0-41.0); MEAN CELL VOLUME 86.7 fl (81.0-99.0); MEAN CORPUSCULAR HGB 27.3 pg (27.0-31.0); MEAN CORPUSCULAR HGB CONC 31.5 g/dl (33.0-37.0); MEAN PLATELET VOLUME 10.2 fl (9.6-12.3); MONO # 0.8 10*3/uL (0.1-1.0); NEUT # 4.8 10*3/uL (2.3-7.9); NEUT % 65.5 % (47.0-73.0); PLATELET COUNT AUTOMATED 145 10*3/uL (130-400); RED BLOOD COUNT 4.51 10*6/uL (4.10-5.10); RED CELL DISTRI WIDTH 14.6 % (0-14.5); WHITE BLOOD COUNT 7.4 10*3/uL (4.8-10.8)
[2021-06-30 07:23] LABS: ALBUMIN 2.9 gm/dl (3.1-4.5); CREATININE 1.21 mg/dL (0.55-1.02); POTASSIUM 4.1 mmol/L (3.5-5.1); TOTAL PROTEIN 7.5 gm/dL (6.4-8.2)
[2021-06-30 07:29] LABS: THYROID STIM HORMONE (HS) 2.4 uIU/ml (0.358-4.75)
[2021-06-30 08:00] VITALS: BP 155/52
[2021-06-30 08:39] LABS: VITAMIN D, 25-HYDROXY 67.6 ng/mL (30-100)
[2021-06-30] MEDS ORDERED: WARFARIN SODIUM4 MG PO (09:48)
[2021-06-30 12:00] VITALS: BP 162/57
[2021-06-30 16:00] VITALS: BP 154/60
[2021-06-30 20:00] VITALS: BP 142/76
[2021-07-01] VITALS: BP 139/77
[2021-07-01 07:01] LABS: BASO % 0.4 % (0.0-1.0); EOS # 0.3 10*3/uL (0.0-0.4); HEMATOCRIT 36.6 % (37.0-47.0); LYMPH # 1.4 10*3/uL (1.3-4.4); MEAN CELL VOLUME 85.9 fl (81.0-99.0); MEAN CORPUSCULAR HGB 27.2 pg (27.0-31.0); MEAN CORPUSCULAR HGB CONC 31.7 g/dl (33.0-37.0); MEAN PLATELET VOLUME 10.6 fl (9.6-12.3); MONO # 1.1 10*3/uL (0.1-1.0); MONO % 12.9 % (3.0-9.0); NEUT # 5.5 10*3/uL (2.3-7.9); NEUT % 64.7 % (47.0-73.0); PLATELET COUNT AUTOMATED 161 10*3/uL (130-400); RED BLOOD COUNT 4.26 10*6/uL (4.10-5.10); RED CELL DISTRI WIDTH 14.7 % (0-14.5); WHITE BLOOD COUNT 8.4 10*3/uL (4.8-10.8)
[2021-07-01 07:29] LABS: CREATININE 1.32 mg/dL (0.55-1.02); POTASSIUM 3.9 mmol/L (3.5-5.1)
[2021-07-01 08:00] VITALS: BP 134/83
[2021-07-01 12:00] VITALS: BP 126/50
[2021-07-01 16:00] VITALS: BP 145/65
[2021-07-02] VITALS: BP 155/73
[2021-07-02 07:06] LABS: INTERNATIONAL NORM RATIO 2.1 (2.0-3.5)
[2021-07-02 07:09] LABS: CREATININE 1.16 mg/dL (0.55-1.02); POTASSIUM 3.9 mmol/L (3.5-5.1)
[2021-07-02 08:00] VITALS: BP 136/64
[2021-07-02 12:00] VITALS: BP 129/70
[2021-07-02 16:00] VITALS: BP 183/43
[2021-07-02 20:00] VITALS: BP 169/54
[2021-07-03] VITALS: BP 142/79; BP 169/54
[2021-07-03 04:06] VITALS: BP 142/79
[2021-07-03 06:24] LABS: CREATININE 1.09 mg/dL (0.55-1.02); POTASSIUM 3.8 mmol/L (3.5-5.1)
[2021-07-03 08:00] VITALS: BP 151/69
[2021-07-03 12:00] VITALS: BP 154/76
[2021-07-03 16:00] VITALS: BP 160/67
[2021-07-04] VITALS: BP 134/66; BP 188/55
[2021-07-04 07:01] LABS: CREATININE 1.16 mg/dL (0.55-1.02); POTASSIUM 4.1 mmol/L (3.5-5.1)
[2021-07-04 08:00] VITALS: BP 158/71
[2021-07-04 12:00] VITALS: BP 126/63
[2021-07-04] MEDS ORDERED: OMNICEF300 MG PO (14:43)
[2021-07-04 16:00] VITALS: BP 153/59
[2021-07-04 20:00] VITALS: BP 141/71
== END 2021-07-04 22:07 | DRG 689 ==
LOC: ED 23:31 → EDHOLD 06-29 07:58 → 4E 06-29 07:58
PROVIDERS: Emergency Medicine; Hospitalist; Internal Medicine; Registered Nurse; ADMIT Emergency Medicine; ATTEND Emergency Medicine
DX: N39.0 Urinary tract infection, site not specified (principal); G93.41 Metabolic encephalopathy; E44.0 Moderate protein-calorie malnutrition; R41.81 Age-related cognitive decline; Z20.822 Contact with and (suspected) exposure to COVID-19; Z66 Do not resuscitate; Z51.5 Encounter for palliative care; I87.2 Venous insufficiency (chronic) (peripheral); I12.9 Hypertensive chronic kidney disease with stage 1 through stage 4 chronic kidney disease, or unspecified chronic kidney disease; N18.32 Chronic kidney disease, stage 3b; R31.9 Hematuria, unspecified; R26.2 Difficulty in walking, not elsewhere classified; E78.5 Hyperlipidemia, unspecified; M1A.9XX0 Chronic gout, unspecified, without tophus (tophi); B96.1 Klebsiella pneumoniae [K. pneumoniae] as the cause of diseases classified elsewhere; Z86.718 Personal history of other venous thrombosis and embolism; Z82.49 Family history of ischemic heart disease and other diseases of the circulatory system; Z79.1 Long term (current) use of non-steroidal anti-inflammatories (NSAID); Z79.899 Other long term (current) drug therapy; Z79.01 Long term (current) use of anticoagulants; Z79.82 Long term (current) use of aspirin; Z68.33 Body mass index [BMI] 33.0-33.9, adult

== ENCOUNTER 2025-06-07 10:19 | Emergency (ER) | payer MEDICARE ==
[~2025-06-07] VITALS: Ht 167.6 cm; Wt 127.0 kg
[~2025-06-07 10:19] MED LIST changes: +ASPIRIN ADULT L81 M2 PO; +ATORVASTATIN CA40 M1 PO; +CEPHALEXIN500 M1 PO; +Coumadin2 MG PO; +FUROSEMIDE20 M1 PO; +JANTOVEN4 M1 PO; +MACROBID100 M1 PO; +NORVASC2.5 MG PO; +OMNICEF300 MG PO; +TYLENOL EXTRA500 MG PO; +VITAMIN D3125 MCG PO; +WARFARIN SOD5 MG PO; +WARFARIN SODIUM4 MG PO
[2025-06-07] MEDS ORDERED: METHOCARBAMOL750 M1 PO (11:47)
[2025-06-07] MEDS ORDERED: PREDNISONE20 M1 PO (11:47)
== END 2025-06-07 11:53 | disposition home or self-care (01) ==
LOC: ED 10:19
DX: M47.26 Other spondylosis with radiculopathy, lumbar region (principal); M25.552 Pain in left hip; E66.9 Obesity, unspecified; M54.50 Low back pain, unspecified; Z79.01 Long term (current) use of anticoagulants; Z79.82 Long term (current) use of aspirin; Z79.899 Other long term (current) drug therapy; Z96.653 Presence of artificial knee joint, bilateral; Z98.890 Other specified postprocedural states; Z68.30 Body mass index [BMI] 30.0-30.9, adult